=== PATIENT | male | born 1980 | race Caucasian/White ===

== ENCOUNTER 2019-03-12 09:05 | Emergency (ER) | payer BC ==
[~2019-03-12] VITALS: Ht 190.5 cm; Wt 113.4 kg
[~2019-03-12 09:05] MED LIST: DILAUDID2 M1; ONDANSETRON HCL4 M2 PO
[2019-03-12] MEDS ORDERED: CLARITIN10 M3 PO (09:20)
[2019-03-12] MEDS ORDERED: FLONASE 0.05%50 MCG NARES (09:21)
[2019-03-12] MEDS ORDERED: TRAMADOL 50 MG50 MG PO (09:34)
[2019-03-12] MEDS ORDERED: FLEXERIL PO (09:34)
== END 2019-03-12 10:45 | disposition home or self-care (01) ==
LOC: M.ERS 09:05
DX: S00.83XA Contusion of other part of head, initial encounter (principal); M79.601 Pain in right arm; M79.602 Pain in left arm; Z90.49 Acquired absence of other specified parts of digestive tract; V89.2XXA Person injured in unspecified motor-vehicle accident, traffic, initial encounter; Y93.89 Activity, other specified; Y92.89 Other specified places as the place of occurrence of the external cause; Y99.8 Other external cause status